=== PATIENT | female | born 2000 | race Caucasian/White ===

== ENCOUNTER 2018-12-22 16:25 | Emergency (ER) | payer BC, SELFPAY | END 2018-12-22 17:55 | disposition home or self-care (01) | LOC: MADERS 16:25 | DX: J01.90 Acute sinusitis, unspecified (principal); J18.9 Pneumonia, unspecified organism; F32.9 Major depressive disorder, single episode, unspecified; F17.210 Nicotine dependence, cigarettes, uncomplicated; Z79.899 Other long term (current) drug therapy | CPT/HCPCS: J7620 ==

== ENCOUNTER 2018-12-24 12:31 | Emergency (ER) | payer BC ==
[~2018-12-24 12:31] MED LIST: Sodium Chloride Irrig Solution 250 ML BOT ONE
[2018-12-24] MEDS ORDERED: Silver Nitrate Application 1 EACH ONE ×2 (12:51→13:03)
[2018-12-24] MEDS ORDERED: Bacitracin 1 PK ONE (13:07)
== END 2018-12-24 13:30 | disposition home or self-care (01) ==
LOC: MADERS 12:31
DX: S61.200A Unspecified open wound of right index finger without damage to nail, initial encounter (principal); F32.9 Major depressive disorder, single episode, unspecified; F17.210 Nicotine dependence, cigarettes, uncomplicated; Z79.899 Other long term (current) drug therapy; W26.8XXA Contact with other sharp object(s), not elsewhere classified, initial encounter
CPT/HCPCS: 11042